=== PATIENT | male | born 1970 | race Caucasian/White ===

== ENCOUNTER 2017-12-30 10:05 | Emergency (ER) | payer MEDICAID ==
[~2017-12-30] VITALS: Ht 190.5 cm; Wt 103.0 kg
[~2017-12-30 10:05] MED LIST: CLON-527 PO
[2017-12-30] MEDS ORDERED: CLON-528 PO (11:10)
[2017-12-30 11:35] VITALS: BP 128/79
== END 2017-12-30 11:40 | disposition home or self-care (01) ==
LOC: ER 10:06
DX: F41.9 Anxiety disorder, unspecified (principal); G89.29 Other chronic pain; Z79.899 Other long term (current) drug therapy
CPT/HCPCS: 99284